=== PATIENT | female | born 1980 | race Caucasian/White ===

== ENCOUNTER 2018-10-09 15:04 | Day surgery (SDC) | payer BC ==
[2018-10-09] MEDS ORDERED: BUPIVACAINE 0.5% (SDV) 30 ML INJ ×2 (15:27→21:47)
[2018-10-09] MEDS: LACTATED RINGER'S 1,000 ML IV (16:26)
[2018-10-09] MEDS ORDERED: NEOSTIGMINE 3 MG/3 ML SYRINGE (18:13)
[2018-10-09] MEDS ORDERED: CEFAZOLIN 1 GM INJ (18:13)
[2018-10-09] MEDS ORDERED: ONDANSETRON 4 MG INJ (18:13)
[2018-10-09] MEDS ORDERED: PROPOFOL 0 ML (18:13)
[2018-10-09] MEDS ORDERED: GLYCOPYRROLATE 0.4 MG INJ (18:13)
[2018-10-09] MEDS ORDERED: ROCURONIUM 50 MG INJ (18:13)
[2018-10-09] MEDS ORDERED: DEXAMETHASONE 4 MG/ML 5 ML INJ (18:14)
[2018-10-09] MEDS ORDERED: ROPIVACAINE 0.5 % 30 ML VIAL (18:16)
[2018-10-09] MEDS ORDERED: FENTAnyl 50 MCG/ML VIAL (18:16)
[2018-10-09] MEDS: POLYMYXIN/BACITRACIN 1L IRRIG IRR (19:40)
[2018-10-09] MEDS ORDERED: KETAMINE (50 MG/ML) 10 ML VIAL (20:00)
[2018-10-09] MEDS ORDERED: LIDOCAINE 1% (MPF) 30 ML INJ (21:47)
== END 2018-10-09 23:01 | disposition home or self-care (01) ==
LOC: SDS 15:04
DX: S42.452D Displaced fracture of lateral condyle of left humerus, subsequent encounter for fracture with routine healing (principal); S53.442D Ulnar collateral ligament sprain of left elbow, subsequent encounter; X58.XXXD Exposure to other specified factors, subsequent encounter
CPT/HCPCS: 24343; 73080-LT; 86850; 86900; 86901